=== PATIENT | female | born 1955 | race Caucasian/White ===

== ENCOUNTER 2016-12-25 16:32 | Emergency (ER) | payer MEDICAID, OTHER ==
[2016-12-25] MEDS ORDERED: Cephalexin 250 MG Cap PO ONE ×2 (17:55)
[2016-12-25] MEDS ORDERED: Diphtheria,Pertussis(Acell),Tetanus Vaccine 0.5 ML SDV IM ONE (17:59)
--- NOTE | 2016-12-25 18:02 | EDM.PDOC ---
[id number] 4d FISH HOOK Time Seen by Provider: 12/25/16 17:40 Source of Information: Reports: Patient History Limitations: Reports: No Limitations - History of Present Illness INITIAL COMMENTS - FREE TEXT/NARRATIVE: 61-year-old female with one lyle of a treble hook embedded into her occipital scalp. No other injury. Onset: Today Head Pain Score (Numeric/FACES): 5 - Related Data Allergies Allergy/AdvReac Type Severity Reaction Status Date / Time No Known Allergies Allergy Verified 12/25/16 17:35 Home Meds: Home Meds Hydrochlorothiazide 12.5 mg PO DAILY 12/25/16 [History] Lisinopril 40 mg PO DAILY 12/25/16 [History] metFORMIN [Glucophage] 250 mg PO BID 12/25/16 [History] Past Medical History HEENT History: Reports: Impaired Vision Cardiovascular History: Reports: Hypertension CRISIS MENTAL HEALTH THERAPIST History: Reports: Musculoskeletal History: Reports: Fracture Endocrine/Metabolic History: Reports: Diabetes, Type II - Past Surgical History Musculoskeletal Surgical History: Reports: Knee Replacement Social & Family History - Tobacco Use Smoking Status *Q: Never Smoker - Caffeine Use Caffeine Use: Reports: Coffee - Recreational Drug Use Recreational Drug Use: No ED ROS GENERAL - Review of Systems Review Of Systems: See Below Constitutional: Denies: Fever Respiratory: Denies: Shortness of Breath Cardiovascular: Denies: Chest Pain GI/Abdominal: Denies: Abdominal Pain Musculoskeletal: Reports: Other (Recent left total knee, concerned about infection) ED EXAM, GENERAL - Physical Exam Exam: See Below Exam Limited By: No Limitations General Appearance: Alert, No Apparent Distress Head: Other (Patient has one lyle of a treble hook embedded into the occipital scalp) Respiratory/Chest: No Respiratory Distress Course - Vital Signs Last Recorded V/S: Last Vital Signs Temp 97.8 F 12/25/16 17:42 Pulse 65 12/25/16 17:42 Resp 18 12/25/16 17:42 BP 152/88 H 12/25/16 17:42 Pulse Ox 96 12/25/16 17:42 - Orders/Labs/Meds Meds: Medications Discontinued Medications Generic Name Dose Route Start Last Admin Trade Name Freq PRN Reason Stop Dose Admin Cephalexin 250 mg 12/25/16 17:55 12/25/16 18:03 Keflex PO 07/30/17 17:56 250 mg ONETIME ONE Administration Cephalexin 250 mg 12/25/16 17:55 12/25/16 18:03 Keflex PO 12/25/16 17:56 250 mg ONETIME ONE Administration Diphtheria/Tetanus/Acell Pertussis 0.5 ml 12/25/16 17:59 12/25/16 18:03 Adacel IM 12/25/16 18:00 0.5 ml .ONCE ONE Administration Lidocaine HCl 5 ml 12/25/16 17:46 12/25/16 18:03 Xylocaine-Mpf 1% INJECT 12/25/16 17:47 5 ml ONETIME ONE Administration - Re-Assessments/Exams Free Text/Narrative Re-Assessment/Exam: 12/25/16 18:02 The area was anesthetized with 1% lidocaine, and and needle sanchez was used to back the hook out without complications. She was given a tetanus vaccination and one oral dose of cephalexin because of the recent knee surgery and her concern. She should keep the wound clean while healing. Departure - Departure Time of Disposition: 18:17 Disposition: Home, Self-Care 01 Condition: Good Clinical Impression: Foreign body head Qualifiers: Encounter type: initial encounter Qualified Code(s): S00.95XA - Superficial foreign body of unspecified part of head, initial encounter - Discharge Information Instructions: Puncture Wound, [id number]-Ctww Referrals: PCP,None [Primary Care Provider] - Forms: ED Department Discharge Care Plan Goals: Keep wound clean while healing. Recheck if concerns of infection or not healing satisfactorily.
[2016-12-25 18:21] VITALS: BP 152/88
== END 2016-12-25 18:18 | disposition home or self-care (01) ==
LOC: JP.ED 16:32
DX: S00.05XA Superficial foreign body of scalp, initial encounter (principal); I10 Essential (primary) hypertension; E11.9 Type 2 diabetes mellitus without complications; Z23 Encounter for immunization; Z96.659 Presence of unspecified artificial knee joint; Z79.899 Other long term (current) drug therapy; W45.8XXA Other foreign body or object entering through skin, initial encounter
CPT/HCPCS: 90471; 90715; 99283; A9270